=== PATIENT | female | born 1990 | race Caucasian/White ===

== ENCOUNTER 2019-02-09 08:23 | Day surgery (SDC) | payer OTHER ==
[2019-02-09] VITALS (11 sets, daily range): BP systolic 130–148; BP diastolic 80–91; PULSE 66–90; RESP 13–18; Ht 157.5 cm; Wt 89.0 kg
[~2019-02-09] VITALS: Ht 157.5 cm; Wt 89.0 kg
[~2019-02-09 08:23] MED LIST: LEVO1TAB47 ORAL
[2019-02-09] MEDS ORDERED: SOD CHLORIDE 0.9% 1,000 ML IV SCH (09:00)
[2019-02-09] MEDS ORDERED: CEFAZOLIN 2 GM/50 ML (PMX) 50 ML IVPB ONE (09:00)
[2019-02-09] MEDS ORDERED: BUPIVACAINE 0.25% (MPF) 30 ML INJ ONE (10:05)
[2019-02-09] MEDS ORDERED: DEXAMETHASONE 4 MG/ML 5 ML INJ ONE (10:16)
[2019-02-09] MEDS ORDERED: CEFAZOLIN 1 GM INJ ONE (10:16)
[2019-02-09] MEDS ORDERED: ROCURONIUM 50 MG INJ ONE (10:16)
[2019-02-09] MEDS ORDERED: LIDOCAINE 2% (SDV) 5 ML INJ ONE (10:16)
[2019-02-09] MEDS ORDERED: MIDAZOLAM 1 MG/ML 2 ML INJ ONE (10:16)
[2019-02-09] MEDS ORDERED: ONDANSETRON 4 MG INJ ONE (10:16)
[2019-02-09] MEDS ORDERED: GLYCOPYRROLATE 0.4 MG INJ ONE (10:16)
[2019-02-09] MEDS ORDERED: PROPOFOL 40 ML ONE (10:16)
[2019-02-09] MEDS ORDERED: ROPIVACAINE 0.5 % 30 ML VIAL ONE (10:16)
[2019-02-09] MEDS ORDERED: FENTAnyl 50 MCG/ML VIAL ONE ×2 (10:16→11:06)
[2019-02-09] MEDS ORDERED: FAMOTIDINE 20 MG INJ ONE (10:16)
[2019-02-09] MEDS ORDERED: NEOSTIGMINE 3 MG/3 ML SYRINGE ONE (10:16)
[2019-02-09] MEDS ORDERED: EPHEDrine 25 MG/5 ML SYG IV PRN (10:30)
[2019-02-09] MEDS ORDERED: FENTAnyl 50 MCG/ML VIAL IV PRN ×2 (10:30)
[2019-02-09] MEDS ORDERED: LABETALOL HCL 20MG INJ IV PRN (10:30)
[2019-02-09] MEDS ORDERED: morphine 2 MG INJ IV PRN ×2 (10:30)
[2019-02-09] MEDS ORDERED: ALBUTEROL 0.083% (NEB) 2.5 MG/3 ML AMP HHN PRN (10:30)
[2019-02-09] MEDS ORDERED: ATROPINE 1 MG/10 ML SYRINGE IV PRN (10:30)
[2019-02-09] MEDS ORDERED: DIPHENHYDRAMINE 50 MG INJ IV PRN (10:30)
[2019-02-09] MEDS ORDERED: KETOROLAC 15 MG INJ IV PRN (10:30)
[2019-02-09] MEDS ORDERED: hydrALAzine 20 MG INJ IV PRN (10:30)
[2019-02-09] MEDS ORDERED: HYDROmorphONE 1 MG/5 ML IV SYRINGE IV PRN ×3 (10:30)
[2019-02-09] MEDS ORDERED: ONDANSETRON 4 MG INJ IV PRN (10:30)
[2019-02-09] MEDS ORDERED: OXYCODONE/ACETAMINOPHEN (5/325) TAB PO PRN ×2 (10:30)
[2019-02-09] MEDS ORDERED: LEVALBUTEROL (NEB) 0.63 MG/3 ML AMP HHN PRN (10:30)
[2019-02-09] MEDS ORDERED: KETOROLAC 30 MG INJ ONE (10:49)
[2019-02-09] MEDS ORDERED: HYDROCODONE/APAP (5/325) TAB PO ONE (11:30)
== END 2019-02-09 14:00 | disposition home or self-care (01) ==
LOC: SDS 08:23
PROVIDERS: ATTEND Surgery
DX: K80.10 Calculus of gallbladder with chronic cholecystitis without obstruction (principal)
CPT/HCPCS: 47562; 88304; J0690; J1100; J1885; J2250; J2270; J2405; J2795; J3010; Z7512; Z7610; J2710